=== PATIENT | male | born 1995 ===

== ENCOUNTER 2018-04-24 23:48 | Emergency (ER) | payer SELFPAY ==
[2018-04-25 00:11] VITALS: BMI 26.5
[2018-04-25 00:16] VITALS: RESP 20
[2018-04-25] MEDS ORDERED: Iodixanol 320 MG/ML 100 ML BOTTLE IV ONE (00:17)
--- NOTE | 2018-04-25 00:23 | C.PDOC ---
History Of Present Illness had dinner around 8 PM. had some whiskey before that. around 9pm had some slurred speech and some body pain. took an ibuprofen. Then the patient friend called 911. Denies any headache , nausea or vomiting, no evidence of trauma. No meds Time Seen by Provider: 04/25/18 00:23 Chief Complaint (Nursing): High Blood Pressure History Per: Family History/Exam Limitations: clinical condition Onset/Duration Of Symptoms: Hrs Current Symptoms Are (Timing): Still Present Associated Symptoms: Other (slurred speech). denies: Chest Pain, Dyspnea Quality Of Symptoms: Other Severity: Severe Pain Scale Rating Of: 9 Exacerbating Factor(s): Pos: Other Recent travel outside of the [place]: No Additional History Per: Family (friend) Past Medical History Reviewed: Historical Data, Nursing Documentation, Vital Signs Vital Signs: Last Vital Signs Temp 98 F 04/25/18 01:30 Pulse 88 04/25/18 02:23 Resp 20 04/25/18 02:23 BP 183/115 H 04/25/18 02:23 Pulse Ox 96 04/25/18 02:23 - Medical History PMH: HTN Family History: States: No Known Family Hx - Social History Hx Alcohol Use: Yes Hx Substance Use: No - Immunization History Hx Tetanus Toxoid Vaccination: No Hx Influenza Vaccination: No Hx Pneumococcal Vaccination: No Review Of Systems Review Of Systems: ROS cannot be obtained secondary to pt's inabilty to answer questions. Physical Exam - Physical Exam Appears: In Acute Distress Skin: Warm, Dry Head: Normacephalic Eye(s): bilateral: Normal Inspection, PERRL, EOMI Oral Mucosa: Moist Lips: Normal Appearing Neck: Trachea Midline, Supple Chest: Symmetrical Cardiovascular: Rhythm Regular Respiratory: No Rales, No Rhonchi, No Wheezing Gastrointestinal/Abdominal: Soft, No Tenderness, No Distention Back: Normal Inspection Extremity: No Tenderness, No Pedal Edema Extremity: Bilateral: Atraumatic, Normal Color And Temperature, Normal ROM Pulses: Left Carotid: Normal, Right Carotid: Normal, Left Dorsalis Pedis: Normal , Right Dorsalis Pedis: Normal Neurological/Psych: Dysarthria, Other (right arm weakness) Gait: Unable To Assess Extremity: Right: Drift Before 10 Secs, Left: No Drift ED Course And Treatment - Laboratory Results Result Diagrams: 04/25/18 00:30 04/25/18 00:30 ECG: Interpreted By Me, Viewed By Me ECG Rhythm: Sinus Rhythm (66), Nonspecific Changes O2 Sat by Pulse Oximetry: 96 Pulse Ox Interpretation: Normal - Radiology CXR: Interpreted by Me, Viewed By Me CXR Interpretation: No: Infiltrates, Fracture, Pnemothorax - Other Rad chest X-Ray: Interpreted by Me, Viewed By Me Interpretation: ett at mauricio. no infiltrates, pulled up 2 cm Progress Note: 12:56 AM Bp 176/108 improved. Still moves all extremities with r arm weakness, and still some slurred speech. 1:03AM placed call to [facility] -. 1:15 am - pt was accepted in transfer by dr white. Pt is aware of the transfer and understands the risks as I've explained at length. Friend at bedside(HIPAA compliant). spoke with HUDSON cramer at [facility], and patient was accepted by dr dumont in the ED. as pt was getting ready for transfer, he deterriorated, and was intubated to protect his airway. Reevaluation Time: 01:35 Critical Care Time - Critical Care Note Total Time (in mins): 110 Documented critical care: time excludes all time spent performing seperately billable procedures. Endotracheal Intubation - Endotracheal Intubation Intubated With ETT Size: 80 Indication: Airway Protection Intubated: Orally (with glidescope) Pre-Intubation Airway Assessment: Ventilated And Oxygenated Paralyzed With: Succinylcholine (and propofol) Post-Intubation Assessment: ETT Secured AT (cm): (24), Breath Sounds Equal Bilat , Placement Confirmed Via CXR, Color Change W/End Tidal CO2 Detector, Oxygen Saturation: (100) NIHSS Stroke Scale - Date/Time Evaluation Performed Date Performed: 04/25/18 Time Performed: 00:00 When Was NIHSS Performed: Baseline - How Severe is the Stoke Level of Consciousness: 1=Drowsy LOC to Questions: 0=Both comments correct LOC to commands: 0=Obeys both correctly Best Gaze: 0=Normal Visual: 0=No visual loss Facial: 1=Minor asymmetry Motor Arm - Left: 0=No drift Motor Arm - Right: 1=Drift noted before 10 sec Motor Leg - Left: 0=No drift Motor Leg - Right: 0=No drift Limb Ataxia: 0=Absent Sensory: 0=Normal Best Language: 0=No aphasia Dysarthia: 1=Mild to moderate slurring Extinction & Inattention (Neglect): 0=Normal, no object Score: 4 Severity Of Stroke: 1-4= Minor Stroke Disposition Counseled Patient/Family Regarding: Studies Performed, Diagnosis - Disposition Disposition: Trans to Other Acute Care Hosp Disposition Time: 00:23 Condition: GUARDED Instructions: Intracerebral Hemorrhage Forms: [facility] (Georgian) - Clinical Impression Clinical Impression: Hypertensive crisis, unspecified, Cerebral brain hemorrhage
[2018-04-25] MEDS ORDERED: niCARdipine IV 25 MG in Sodium Chloride 0.9% 240 ML IV SCH (00:30)
[2018-04-25 00:33] LABS: BASO # 0.1 K/uL (0.0-0.2); BASO % 0.7 % (0.0-2.0); EOS # 0.6 K/uL (0.0-0.7); HEMOGLOBIN 15.7 g/dL (12.0-18.0); LYMPH # 5.3 K/uL (1.0-4.3); LYMPH % 44.2 % (20.0-40.0); MEAN CELL VOLUME 76.8 fL (80.0-94.0); MEAN CORPUSCULAR HEMOGLOBIN 26.5 pg (27.0-31.0); MEAN CORPUSCULAR HGB CONC 34.6 g/dL (33.0-37.0); MEAN PLATELET VOLUME 9.3 fL (7.2-11.7); MONO # 0.8 K/uL (0.0-0.8); MONO % 6.3 % (0.0-10.0); NEUT # 5.3 K/uL (1.8-7.0); NEUT % 43.8 % (50.0-75.0); RBC 5.9 Mil/uL (4.40-5.90)
[2018-04-25 00:57] LABS: LDL CHOLESTEROL 115 mg/dL (0-129)
[2018-04-25 00:59] LABS: ALB/GLOB RATIO 1.8 (1.0-2.1); ALBUMIN 5.1 g/dL (3.5-5.0); ALT/SGPT 59 U/L (21-72); AST/SGOT 40 U/L (17-59); BLOOD UREA NITROGEN 16 mg/dL (9-20); CALCIUM 9.6 mg/dl (8.6-10.4); GFR AFRICAN-AMERICAN > 60; GFR NON-AFRICAN AMERICAN > 60; HDL CHOLESTEROL 46 mg/dL (30-70)
[2018-04-25 01:17] VITALS: O2SAT 96
[2018-04-25 01:31] VITALS: TEMP 98
[2018-04-25] MEDS ORDERED: Propofol 10 mg/ml 1,000 MG/100 ML VIAL ONE (01:58)
[2018-04-25] MEDS ORDERED: Propofol 10 mg/ml Inj (20 ML) IV ONE (02:20)
[2018-04-25] MEDS ORDERED: Rocuronium 10 mg/ml (5 ml) IV ONE (02:21)
[2018-04-25] MEDS ORDERED: Succinylcholine Chloride 20 mg/ml Syr (5 ml) IV STA (02:22)
[2018-04-25 02:23] VITALS: BP 183/115; PULSE 88
--- NOTE | 2018-04-25 08:36 | CT ---
Date of service: 04/25/2018 PROCEDURE: CT HEAD WITHOUT CONTRAST. HISTORY: Code Stroke COMPARISON: None available. TECHNIQUE: Axial computed tomography images were obtained through the head/brain without intravenous contrast. Radiation dose: Total exam DLP = 918 mGy-cm. This CT exam was performed using one or more of the following dose reduction techniques: Automated exposure control, adjustment of the mA and/or kV according to patient size, and/or use of iterative reconstruction technique. FINDINGS: HEMORRHAGE: 3.3 x 1.5 centimeter left lentiform nucleus hemorrhage. Mild surrounding edema. BRAIN: See above. VENTRICLES: Unremarkable. No hydrocephalus. CALVARIUM: Unremarkable. PARANASAL SINUSES: Ethmoid and maxillary sinus mucosal disease. MASTOID AIR CELLS: Unremarkable as visualized. No inflammatory changes. OTHER FINDINGS: None. IMPRESSION: 3.3 x 1.5 centimeter left lentiform nucleus hemorrhage. Mild surrounding edema. These findings were preliminarily reported at 1:00 a.m. on 04/25/[address] Lenin Kennedy from [facility]. Doctor Kennedy discussed case with Dr. Santos at 1:00 a.m. on 04/25/2018.
--- NOTE | 2018-04-25 09:43 | RAD ---
Date of service: 04/25/2018 HISTORY: post intubation COMPARISON: 04/25/2018 at 00:30 hours FINDINGS: LUNGS: Interval insertion of an endotracheal tube tip approximately 1.5 cm from the mauricio. The tip is at the inferior clavicle cortical level. Cardiac devices over chest obscure assessment at left lung base. Shallow lung volumes PLEURA: No significant pleural effusion identified, no pneumothorax apparent. CARDIOVASCULAR: Borderline cardiomegaly OSSEOUS STRUCTURES: No significant abnormalities. VISUALIZED UPPER ABDOMEN: Normal. OTHER FINDINGS: None. IMPRESSION: Endotracheal tube tip maximally 1.5 cm from the mauricio -consider retraction 1 cm. Cardiac devices as above.
--- NOTE | 2018-04-25 09:50 | RAD ---
Date of service: 04/25/2018 HISTORY: Code Stroke COMPARISON: No prior. FINDINGS: LUNGS: No consolidation. Shallow lung volume -crowding of pulmonary vasculature. PLEURA: No significant pleural effusion identified, no pneumothorax apparent. CARDIOVASCULAR: Borderline cardiomegaly. OSSEOUS STRUCTURES: No significant abnormalities. VISUALIZED UPPER ABDOMEN: Normal. OTHER FINDINGS: None. IMPRESSION: Borderline cardiomegaly Shallow lung volume -crowding of pulmonary vasculature.
--- NOTE | 2018-04-25 11:38 | CT ---
Date of service: 04/25/2018 PROCEDURE: CT Angiography of the neck - brain dated 04/25/2018 HISTORY: Code stroke COMPARISON: Comparison made with concurrent CT scan brain. TECHNIQUE: Contiguous helical/ transaxial sections of the neck and brain performed in standard fashion during arteriographic phase of enhancement. Coronal and sagittal reformats or also generated. IV contrast dose: Radiation Dose - DLP: 616.15. MGy-cm This CT exam was performed using one or more of the following dose reduction techniques: Automated exposure control, adjustment of the mA and/or kV according to patient size, and/or use of iterative reconstruction technique. FINDINGS: Aortic arch widely patent. No significant atherosclerotic disease. The great vessels are also widely patent without evidence of significant atherosclerosis. Three-vessel arch. RIGHT CAROTID ARTERIES: Common Carotid Artery: Normal. Carotid Bifurcation: Normal. Internal Carotid Artery:Normal. External Carotid Artery (proximal branches): Normal. LEFT CAROTID ARTERIES: Common Carotid Artery: Normal. Carotid Bifurcation: Normal. Internal Carotid Artery:Normal. External Carotid Artery (proximal branches): Normal. VERTEBRAL ARTERIES: Right Vertebral Artery: Normal. Left Vertebral Artery: Normal. OTHER FINDINGS: Less well seen on this study is a relatively large elliptical shaped hemorrhage within the lateral basal ganglia surrounded by low-attenuation edema and or necrotic brain tissue. There is a small slit-like area of low attenuation right lateral basal ganglia that could represent either old infarct or sequela of old/remote hemorrhage. No evidence of large aneurysm nor vascular malformation. IMPRESSION: Normal CT Angiography of the neck. Left basal ganglia hematoma the appearance and location of which suggests hypertensive origin however clinical correlation recommended. See above discussion for additional details.
--- NOTE | 2018-04-26 12:00 | CARD ---
APPROVED REPORT Date of service: 04/25/2018 EKG Measurement Heart [id number] <Conclusion> Normal sinus rhythm Nonspecific T wave abnormality Abnormal ECG
== END 2018-04-25 02:44 | disposition short-term general hospital (02) ==
LOC: C.ER 23:48
DX: I61.9 Nontraumatic intracerebral hemorrhage, unspecified (principal); I16.9 Hypertensive crisis, unspecified
CPT/HCPCS: 31500; 70450; 70496; 70498; 71045; 80053; 80061; 82948; 83036; 84484; 85025; 85610; 85730; 86850; 86900; 93005; 99285; G0480; J2704; Q9967